=== PATIENT | male | born 1960 | race Caucasian/White ===

== ENCOUNTER 2017-01-13 13:15 | Emergency (ER) | payer OTHER ==
[2017-01-13] MEDS ORDERED: HYDROmorphone PF 1 MG/ML DISP.SYRIN ONE ×2 (13:27→15:30)
[2017-01-13] MEDS ORDERED: ONDANSETRON PF 4 MG/2 ML VIAL. ONE (13:27)
[2017-01-13] MEDS ORDERED: IV NORMAL SALINE 1,000ML 1,000 ML IV ONE (14:00)
[2017-01-13] MEDS ORDERED: ETOMIDATE 40 MG/20 ML VIAL. IV ONE (14:00)
[2017-01-13] MEDS ORDERED: HYDROmorphone PF 2 MG/ML VIAL IV ONE (14:00)
[2017-01-13 14:14] VITALS: BP 131/77
--- NOTE | 2017-01-13 14:28 | PHYS DOC ---
Text Departure Time of Disposition: 15:11 Disposition: 02 XFER [facility] Condition: IMPROVED Departure: Impression: Primary Impression: Dislocation of right shoulder joint Additional Impressions: Greater tuberosity of humerus fracture Fall History of Parkinson's disease General Chief Complaint: SHOULDER INJURY Stated Complaint: RT SHOULDER DISLOCATION Time Seen by MD: 13:20 Source: patient, police Problems: History of Present Illness Initial Comments 56-year-old incarcerated male patient with history of Parkinson disease and accidental fall from a standing position at 0930 this morning and landed on right shoulder with severe pain and deformity of his shoulder and unable to move his shoulder. Patient did not have loss of consciousness and other injuries. Patient denies history of shoulder dislocation or focal neuro deficit. Patient rated his pain 10 over 10. Allergies: Coded Allergies: No Known Drug Allergies (Unverified , 01/13/17) Past Medical History Medical History: other (Parkinson disease) Review of Systems Constitutional: no symptoms reported EENTM: no symptoms reported Respiratory: no symptoms reported Cardiovascular: no symptoms reported Gastrointestinal: no symptoms reported Genitourinary: no symptoms reported Musculoskeletal: see HPI Skin: no symptoms reported Psychiatric/Neurological: no symptoms reported Hematologic/Lymphatic: no symptoms reported Immunological/Allergic: no symptoms reported All Other Systems: Reviewed and Negative Physical Exam General Appearance: moderate distress, other (shaking movement of parkinson disease) Ear, Nose, Throat: hearing grossly normal, normal ENT inspection Neck: non-tender, full range of motion, supple Respiratory: chest non-tender, lungs clear, normal breath sounds, no respiratory distress Cardiovascular: normal peripheral pulses, regular rate, rhythm, no edema Back: normal inspection Extremities: other (right shoulder with tenderness and deformity with dislocation holding on flexion position) Neurologic/Psychiatric: no motor/sensory deficits, alert, normal mood/affect Skin: normal color Additional Procedures Progress 1) Procedural conscious sedation for right shoulder dislocation at 1414 with giving 1 mg of IV Dilaudid and 10 mg of etomidate with stable vital signs during procedure. Patient did not need reverse medication. 2) right shoulder dislocation reduction at 1414 with conscious sedation was unsuccessful with manipulation of the shoulder because of humerus head fracture associated with dislocation Orders, Labs, Meds Evaluation of patient showed 56-year-old male patient with right shoulder dislocation at custodial at 0930 today. X ray showed humeral head evulsion fracture and dislocation. Reduction of fracture with conscious sedation was unsuccessful because of the fracture associated with dislocation. Dr. Justice provider education specialist orthopedic physician at [facility] consulted at 1440 amended to transfer the patient to [facility] to hospitalist service service. Dr. Smith accepted the transfer at 1506. Shoulder immobilizer applied in ER by [facility] [employer] and patient had Dilaudid and felt better when he was in emergency department. TERENCE RAMOS MD Jan 13, 2017 14:28
--- NOTE | 2017-01-13 14:36 | RAD ---
SHOULDER 2+V RIGHT Clinical Indication: fell Comparison: None. Technique: Frontal and attempted internal rotation views of the right shoulder are obtained. Findings: There is inferior and central dislocation of the right humeral head in relation to the glenoid. A 2.5 cm fracture fragment is seen lateral to the humeral head, most consistent with a displaced greater tubercle fracture fragment. There is lateral displacement of this fracture fragment by approximately 18 mm. It is not known whether the humeral dislocation is anterior and posterior on these frontal views. The glenoid appears grossly intact as visualized. Acromioclavicular joint is maintained. Visualized ribs appear intact. Visualized lung appears clear. Overlying soft tissues demonstrate no acute finding. IMPRESSION: Inferior dislocation of the humeral head, with an acute, displaced fracture arising from the greater tubercle.
== END 2017-01-13 15:44 | disposition short-term general hospital (02) ==
LOC: ER 13:15
DX: S42.251A Displaced fracture of greater tuberosity of right humerus, initial encounter for closed fracture (principal); G20 Parkinson's disease; W19.XXXA Unspecified fall, initial encounter; Y93.89 Activity, other specified; Y99.8 Other external cause status; Y92.89 Other specified places as the place of occurrence of the external cause
CPT/HCPCS: 23650; 73030; 99285; J1170; 96360; J7030